=== PATIENT | female | born 1945 | race Caucasian/White ===

== ENCOUNTER 2017-06-03 10:50 | Outpatient (CLI) | payer MEDICARE, BC ==
[2017-06-03] MEDS ORDERED: Iopamidol 370 76% 100 ML VIAL ONE (13:50)
--- NOTE | 2017-06-03 14:42 | CT ---
CT CHEST WITH IV CONTRAST: Date: 06/03/17 HISTORY: Malignant neoplasm of the pyloric antrum, lung cancer, status post chemo and radiation therapy. FINDINGS: Comparison made with exams of 12/08/16 and 09/08/16. No mediastinal, hilar, or axillary mass or lymphadenopathy is seen. There is a small area of patchy consolidation in the right lower lobe in the region of the previously noted nodule likely due to pos t radiation change. No new pulmonary nodules are identified. No pleural or pericardial effusions are seen. There are degenerative changes in the spine. Upper abdominal tomograms demonstrate postop facundo nges, fatty liver, calcified splenic granulomas, and left renal cysts. IMPRESSION: Patchy consolidation in the right lower lobe is most likely due to post radiation change. No definit e pulmonary nodules are identified. POS: [facility]
== END 2017-06-03 10:51 | disposition home or self-care (01) ==
LOC: CT 10:50
PROVIDERS: ATTEND Internal Medicine Hematology & Oncology
DX: C16.3 Malignant neoplasm of pyloric antrum (principal); C78.02 Secondary malignant neoplasm of left lung
CPT/HCPCS: 71260

== ENCOUNTER 2017-09-13 10:19 | Outpatient (CLI) | payer MEDICARE, BC | END 2017-09-13 10:20 | disposition home or self-care (01) | LOC: BICRAD 10:19 | PROVIDERS: ATTEND Internal Medicine Hematology & Oncology | DX: C78.02 Secondary malignant neoplasm of left lung (principal) | CPT/HCPCS: 71046 ==

== ENCOUNTER 2017-12-07 09:07 | Outpatient (CLI) | payer MEDICARE, BC ==
[2017-12-07] MEDS ORDERED: ISOVUE-370 76%-LOCM 1 ML ONE (15:02)
== END 2017-12-07 09:08 | disposition home or self-care (01) ==
LOC: BICCT 09:07
PROVIDERS: ATTEND Internal Medicine Hematology & Oncology
DX: C78.02 Secondary malignant neoplasm of left lung (principal)
CPT/HCPCS: 71260

== ENCOUNTER 2018-01-14 06:17 | Inpatient (IN) | payer MEDICARE, BC ==
[2018-01-14 06:42] LABS: Bilirubin Negative (Negative); Blood, Urine Negative (Negative); Clarity CLEAR (Clear); Glucose, Urine (Dipstick) Negative (Negative); Leukocyte Trace (Negative); Nitrite Negative (Negative); Protein, Urine (Dipstick) Negative (Neg-Trace); Specific Gravity, Urine 1.012 (1.002-1.036); Urobilinogen 0.2 mg/dL (0.2-1.0)
[2018-01-14 06:44] LABS: Bacteria/HPF None Seen HPF (None Seen); Hyaline Casts/LPF 0-3 HYALINE CAST LPF (0-3 Hyaline); Pathc Cast-AUWi Flag 0.14 (0-2.49); RBC/HPF 0-3 HPF (0-3); Squamous Epithelial 0-3 HPF (0-3)
[2018-01-14 06:49] LABS: #Basophils 0.1 thou/uL (0.0-0.2); #Eosinphils 0.1 thou/uL (0.0-0.7); #Monocytes 0.4 thou/uL (0.11-0.59); #Neutrophils 4.6 thou/uL (1.40-6.50); %Eosinophils 1.4 % (0.0-10.0); %Lymphocytes 15.6 % (21.0-51.0); %Monocytes 6.4 % (0.0-10.0); %Neutrophils 74.6 % (42.0-75.0); Hemoglobin 11.9 g/dL (12.0-16.0); Mean Corpuscular HGB CONC 32.1 g/dL (32.0-36.0); Mean Corpuscular Hemoglobin 31.2 pg (27.0-31.0); Mean Corpuscular Volume 97.4 fl (81.0-99.0); Mean Platelet Volume 6.7 fL (7.4-10.4); Platelet Count 197 thou/uL (130-400); RBC Distribution Width 12.8 % (11.5-14.5); Red Blood Cell (RBC) Count 3.79 mill/uL (4.20-5.40); White Blood Cell (WBC) Count 6.2 thou/uL (4.8-10.8)
[2018-01-14 07:03] LABS: ALT (SGPT) 34 U/L (8-55); AST (SGOT) 58 U/L (5-34); Albumin 3.4 g/dL (3.4-4.8); Alkaline Phosphatase 147 U/L (40-150); Anion Gap 10 mmol/L (10-20); BUN (Urea Nitrogen) 17 mg/dL (9.8-20.1); Bilirubin, Total 0.2 mg/dL (0.2-1.2); Calc. Creatinine Clearance 0 mL/min (70-130); Calcium 8.7 mg/dL (7.8-10.44); Carbon Dioxide 21 mmol/L (23-31); Estimated GFR-MDRD 61; Globulin 2.6 g/dL (2.4-3.5); Glucose 107 mg/dL (83-110); Potassium 3.9 mmol/L (3.5-5.1); Sodium 143 mmol/L (136-145)
[2018-01-14 07:07] LABS: CKMB 1.2 ng/mL (0-6.6); Troponin I 0.014 ng/mL (< 0.028)
[2018-01-14 07:17] LABS: Chloride 116 mmol/L (98-107)
--- NOTE | 2018-01-14 07:21 | RAD ---
UPRIGHT PORTABLE CHEST 1 VIEW: Date: 01/14/18 HISTORY: 72-year-old female with history of chest pain and facial pain radiating to back. FINDINGS: Minimal rotation to the left. Monitor leads overlie the chest. Right subclavian catheter and injectio n port. Minimal linear and parenchymal changes in the right parahilar region, most likely residual sc ar, stable from prior study. No confluent pneumonia, overt edema, or pleural effusion. IMPRESSION: No acute intrathoracic disease. POS: [facility]
[2018-01-14 10:17] LABS: Troponin I 0.172 ng/mL (< 0.028)
[2018-01-14] MEDS ORDERED: Loratadine 10 MG TAB PO PRN (12:22)
[2018-01-14] MEDS ORDERED: Loperamide HCl 2 MG CAP PO PRN (12:22)
[2018-01-14] MEDS ORDERED: Nitroglycerin 0.4 MG TAB (25 Tab Bottle) SL PRN (12:22)
[2018-01-14] MEDS ORDERED: Senokot 8.6 MG TAB PO PRN (12:22)
[2018-01-14] MEDS ORDERED: Zolpidem Tartrate 5 MG TAB PO PRN (12:22)
[2018-01-14] MEDS ORDERED: Chloraseptic Spray 180 ml Bottle PO PRN (12:22)
[2018-01-14] MEDS ORDERED: hydrALAZINE 20 MG/ML VIAL SLOW IVP PRN (12:22)
[2018-01-14] MEDS ORDERED: Artificial Tears 18 DROP/0.9 ML EA EYE PRN (12:22)
[2018-01-14] MEDS ORDERED: Sodium Chloride 0.65% Nasal 44 ML BOT EA NARE PRN (12:22)
[2018-01-14] MEDS ORDERED: Diabetic Tussin 200 MG/10 ML UDCUP PO PRN (12:22)
[2018-01-14] MEDS ORDERED: Mag-Al 1200 mg/1200 mg/30 ML UDCUP PO PRN (12:22)
[2018-01-14] MEDS ORDERED: Lorazepam 1 MG TAB PO PRN (12:22)
[2018-01-14] MEDS ORDERED: Eucerin (Mineral Oil/Petrolatum,White) 30 gm Jar TOP PRN (12:22)
[2018-01-14] MEDS ORDERED: Ondansetron HCl/PF 4 MG/2 ML Vial IVP PRN (12:22)
[2018-01-14] MEDS ORDERED: Ondansetron ODT 4 MG TAB PO PRN (12:22)
[2018-01-14] MEDS ORDERED: Milk Of Magnesia 30 ML UDCUP PO PRN (12:22)
[2018-01-14 12:23] VITALS: BMI 30.4
--- NOTE | 2018-01-14 12:35 | HP ---
PRIMARY CARE PHYSICIAN: Dr. Cole Salazar at [facility] in [place], [place]. REASON FOR ADMISSION: Chest pain, elevated troponin, SVT. HISTORY OF PRESENT ILLNESS: A 72-year-old female who has previous history of atrial flutter/atrial f ibrillation, who has a history of ablation by Dr. De Luna in 01/2017. The patient was on Multaq, but th at medication was discontinued by her vendette. The patient was also on anticoagulation t herapy with Eliquis that was also discontinued. Last night around 4:30, she woke up and she went to restroom. At that time, the patient was experien cing pain on the right side of face. She was feeling lightheadedness. She felt her blood pressure h igh and migraine headache and that is why she took her blood pressure medication and a half pill of p ain medication, but that did not improve her symptoms. She checked her vitals, at that time she noti delgado that her pulse was in 180s. The patient called paramedics. When paramedics came to her home, at that time she was having SVT/1:1 atrial flutter. Paramedics advised her to take deep breath against pressure and immediately after that her atrial flutter/SVT converted to sinus rhythm, heart rate red uced to 108. Subsequently, the patient was brought to emergency room for evaluation. When she came to emergency room, she was in sinus rhythm. Her first set of cardiac enzymes were negative, but seco nd set of troponin was elevated. The patient was not having any chest pain though she was feeling li ghtheadedness. Her facial pain was resolved. She did not have any fever or chills. She denies taki ng excessive caffeinated product. She denies any fever or chills. She denies any UTI symptoms. She denies any constipation, diarrhea, melena or hematochezia. In the emergency room, the patient was hemodynamically stable, though slightly hypertensive. Initial ly, there was plan to discharge from ER, but as troponin was elevated and that is why ER physician de cided to keep this patient in the hospital for observation. The patient described chest pain, subste rnal, radiated to her back when she had episode of SVT, lasted for a few minutes and subsided when he r initial SVT converted into sinus rhythm with vagal maneuvers. Since then, she does not have any fu rther chest pain. She denies any syncope. She was not feeling any palpitations. She denies any ort hopnea, PND or leg swelling. She denies any relation of chest pain with food, respiration, or activi ty. REVIEW OF SYSTEMS: Please see my HPI for pertinent positive and negative. All other review of syste ms reviewed and negative except as mentioned in the HPI: Constitutional: Weight loss or gain, ability to conduct usual activities. Skin: Rash, itching. Eyes: Double vision, pain. ENT/Mouth: Nose bleeding, neck stiffness, pain, tenderness. Cardiovascular: Palpitations, dyspnea on exertion, orthopnea. Respiratory: Shortness of breath, wheezing, cough, hemoptysis, fever or night sweats. Gastrointestinal: Poor appetite, abdominal pain, heartburn, nausea, vomiting, constipation, or diarrhea. Genitourinary: Urgency, frequency, dysuria, nocturia. Musculoskeletal: Pain, swelling. Neurologic/Psychiatric: Anxiety, depression. Allergy/Immunologic: Skin rash, bleeding tendency. PAST MEDICAL HISTORY: Paroxysmal atrial fibrillation/flutter, hypertension, dyslipidemia, asthma, hi story of stomach cancer, migraine headache. PAST SURGICAL HISTORY: Neck surgery, laparoscopic cholecystectomy, colonoscopy, stomach surgery, ome ntectomy, history of Port-A-Cath placement to right subclavian, history of lumpectomy of right breast , ablation for atrial flutter. PAST PSYCHIATRIC HISTORY: Anxiety and depression. SOCIAL HISTORY: The patient is . Her is present at bedside in the emergency room. N o history of tobacco, alcohol or illicit drug abuse. She is a former smoker. She quit smoking sever al years ago. FAMILY HISTORY: Positive for cerebrovascular accident, diabetes, kidney failure in her brother and s ister. ALLERGIES: ASPIRIN. CURRENT HOME MEDICATIONS: The patient is no longer on Multaq or anticoagulation therapy with Eliquis . Currently, the patient is on Corgard 40 mg daily, [place] 5 one tablet at bedtime, Soma 250 mg at be dtime, Ativan 0.5 mg as needed basis. EMERGENCY ROOM COURSE: Reviewed. PHYSICAL EXAMINATION: VITAL SIGNS: On arrival, blood pressure 177/78, pulse 88, respiratory rate 18, temperature 98.2, sat uration 98% on room air, weight 77.1 kilograms. GENERAL: The patient is currently alert, oriented, no acute distress. HEAD: Normocephalic, atraumatic. EYES: Pupils round, reactive to light. Extraocular muscle intact. ENT: Oropharynx within normal limits. Moist mucous membranes. No oral lesion, no pharyngeal erythe ma, no exudate. NECK: Supple, no JVD, no thyromegaly, no carotid bruit, no jugular venous distention. LUNGS: Clear to auscultation without any rhonchi or rales. CARDIAC: S1, S2 regular. No murmur, no gallop, no rub. ABDOMEN: Soft, bowel sounds present, nontender, nondistended. No organomegaly, no mass, no suprapub ic tenderness. BACK: Unremarkable, no CVA tenderness. EXTREMITIES: Upper extremity: Passive movement of all joints are normal. Lower extremity: Trace l ower extremity edema. Good distal pulsation. SKIN: No skin rash. HEMATOLOGICAL: No lymphadenopathy. PSYCHIATRIC: Normal affect. NEUROLOGIC: Nonfocal examination. SIGNIFICANT LABORATORY DATA: 1. Monitor strip which was done by paramedics showing SVT/atrial flutter 1:1. Current EKG showing n ormal sinus rhythm, minimal voltage criteria for LVH. Repeat EKG showing sinus bradycardia and incom plete right bundle branch block pattern. 2. CBC: WBC 6.2, hemoglobin 11.9, platelet 197. BMP: Sodium 143, potassium 3.9, chloride 116, car bon dioxide 21, anion gap 10, BUN 17, creatinine 0.90, glucose 107, calcium 8.7. LFT: AST 58, ALT 3 4, alkaline phosphatase 147, albumin 3.4, CK-MB 1.2, troponin I 0.014, repeat troponin 0.172. Urinal ysis: Leukocyte esterase trace. 3. Chest x-ray based on my review, no acute cardiopulmonary process. ASSESSMENT AND PLAN: 1. Transient supraventricular tachycardia /atrial flutter 1:1 with rapid ventricular response conver smitha to sinus rhythm with vagal maneuver. This patient has a history of previous paroxysmal atrial fi brillation/flutter, required ablation. She is not on any specific medication for rate control. The patient has second set of elevated troponins, likely due to demand ischemia. This patient will requi re Cardiology evaluation and will defer to start any AV delbert maru agent to Cardiology. We will m onitor on telemetry floor. She may need vendette follow up as an outpatient basis which s he has end of this month. 2. Chest pain, likely related with supraventricular tachycardia/atrial flutter. The patient has cur rently the sinus rhythm without any acute ischemic changes. Her troponin is elevated because of aimee nd ischemia from supraventricular tachycardia. At this point, we will do serial cardiac enzymes x3. We will continue Plavix 75 mg p.o. daily, nitropatch q.8 hourly. We will do serial cardiac enzymes and check lipid profile tomorrow morning. Cardiology already consulted. Further investigation will defer to Cardiology. 3. Elevated troponin, likely due to demand ischemia. We will obtain echocardiography during this ad mission. Most likely, current troponin elevation is related with demand ischemia from supraventricul ar tachycardia, but we will do serial cardiac enzymes and monitor on telemetry floor and Cardiology i s already consulted. 4. Asthma, mild intermittent. We will continue Ventolin nebulization p.r.n. basis. 5. Anxiety disorder. We will continue lorazepam on p.r.n. basis. 6. Chronic pain disorder. We will continue her Ashton and Soma as per home dosage. 7. Deep venous thrombosis prophylaxis not needed because we are expecting discharge in 24 hours. 8. Gastrointestinal prophylaxis, Pepcid 20 mg p.o. b.i.d. 9. Code status: The patient is FULL CODE. The patient's is surrogate decision maker. Disp osition plan based on clinical course.
[2018-01-14] MEDS: Acetaminophen 325 MG TAB PO PRN (13:31)
[2018-01-14] MEDS: Nitroglycerin 2% Ointment 1 INCH/1 GM Packet TOP SCH ×2 (14:47→21:41)
[2018-01-14 16:39] LABS: Troponin I 0.355 ng/mL (< 0.028)
--- NOTE | 2018-01-14 18:13 | CON ---
DATE OF SERVICE: 01/14/2018 REASON FOR CONSULTATION: Chest pain, SVT, non-STEMI. HISTORY OF PRESENT ILLNESS: Mrs. Durbin is a pleasant 72-year-old white female who comes to the hospit ca for chest pain. She was at home, she felt sudden onset of palpitations and chest tightness in the mid sternal area, radiated to the back in the mid scapular region. She called 911. When they came in, she was found to be in SVT, heart rate in the 180s. She was asked to bear down and she did and i mmediately broke the SVT and she felt much better. She was brought in for further evaluation. Durin g her hospital stay, she has remained pretty much asymptomatic in sinus rhythm. However, her troponi ns have increased up to 0.35 now, so Cardiology is being consulted for further care. She has a histo ry of SVT. She had atrial flutter ablation by Dr. De Luna January of last year and she saw Dr. Delaney at that time. She is wanting to switch coil winder. PAST MEDICAL HISTORY: 1. Paroxysmal atrial fibrillation/flutter. 2. Hypertension. 3. Hyperlipidemia. 4. Bronchial asthma. 5. Stomach cancer in the past. 6. Migraine headaches. PAST SURGICAL HISTORY: 1. Neck surgery. 2. Laparoscopic cholecystectomy. 3. Colonoscopy. 4. Stomach surgery. 5. Omentectomy. 6. Port-A-Cath placement of the right subclavian. 7. Lumpectomy, right breast. 8. Aflutter ablation. SOCIAL HISTORY: No alcohol, tobacco or drugs. Former smoker, but she quit several years ago. FAMILY HISTORY: Noncontributory. OUTPATIENT MEDICATIONS: 1. Nadolol 40 mg a day. 2. Gabapentin. 3. Flonase. 4. Soma. 5. Albuterol inhaler. 6. Lorazepam. 7. Hydrocodone with acetaminophen. ALLERGIES: ASPIRIN. REVIEW OF SYSTEMS: A 12 point review of systems was done and is all negative unless stated in histor y of present illness. PHYSICAL EXAMINATION: VITAL SIGNS: Temperature 98.1, pulse 54, respiration rate 12, satting 98% on room air, blood pressur e 150/65. GENERAL: Awake, alert, oriented x3, in no distress. HEENT: Normocephalic, atraumatic. NECK: Supple. LUNGS: Clear. CARDIOVASCULAR: S1, S2, no S3, S4, no murmurs or rubs. ABDOMEN: Soft, positive bowel sounds. EXTREMITIES: No edema. SKIN: Warm and dry. LABORATORY WORK: Reviewed. CBC was unremarkable. Chemistries were unremarkable except for a tropon in was 0.01, then 0.17, 0.29, 0.35. UA was unremarkable. EKGs were reviewed, what appears to be in SVT, heart rate in the 180s. There is a tracing from EMS i n the chart. ASSESSMENT: 1. Non-ST elevation myocardial infarction. 2. Supraventricular tachycardia. 3. History of atrial flutter, status post ablation. PLAN: Her troponins increased to positive range. She had chest tightness with her episode of SVT. We will have to further risk stratify with a heart catheterization. I have spoken with her at length about the risks and benefits of the procedure, risks including, but not limited to stroke, DE, , bleed ing and need for blood transfusion, limb loss, organ loss, contrast reactions like renal dysfunction and allergic reaction. She verbalized understanding of this and agrees to proceed. Drug-eluting garcia nts if needed. If her heart catheterization is negative, we will consult Electrophysiology to see if there is anythi ng that we need to be doing about this SVT. She may need an ablation as well. Thank you for letting us participate in the care of your patient. We will follow.
[2018-01-14] MEDS: Gabapentin 300 MG CAP PO SCH (21:41)
[2018-01-14] MEDS: Famotidine 20 MG TAB PO SCH (21:44)
[2018-01-14] MEDS: HYDROcodone/Acetaminophen 5/325 mg Tablet PO PRN (21:44)
[2018-01-14] MEDS: Enoxaparin Sodium 80 MG/0.8 ML SYRINGE SC SCH (21:46)
[2018-01-15 05:50] LABS: Cardiac Risk 2.4 (Less than 4.5)
[2018-01-15] MEDS: Nitroglycerin 2% Ointment 1 INCH/1 GM Packet TOP SCH ×2 (05:57→14:09)
[2018-01-15] MEDS: Famotidine 20 MG TAB PO SCH ×2 (08:00→19:31)
[2018-01-15] MEDS: Gabapentin 300 MG CAP PO SCH ×3 (08:00→19:31)
[2018-01-15] MEDS: Enoxaparin Sodium 80 MG/0.8 ML SYRINGE SC SCH ×2 (08:01→19:31)
[2018-01-15] MEDS: Nadolol 40 MG TAB PO SCH (08:01)
[2018-01-15] MEDS ORDERED: Clopidogrel Bisulfate 75 MG TAB PO SCH (09:00)
[2018-01-15] MEDS ORDERED: Enoxaparin Sodium 40 MG/0.4 ML SYRINGE SC SCH (09:00)
--- NOTE | 2018-01-15 11:08 | PDOC.PN ---
- Subjective Encounter Start Date: 01/15/18 Encounter Start Time: 10:25 Subjective: no chest pain or sob -: feels better - Objective MAR Reviewed: Yes Vital Signs & Weight: Vital Signs (12 hours) Temp Pulse Resp BP Pulse Ox 01/15/18 09:53 65 156/70 H 01/15/18 08:00 98.1 F 54 L 16 97 01/15/18 07:34 98.1 F 54 L 16 181/75 H 97 01/15/18 04:00 98.1 F 69 16 172/74 H 97 01/15/18 00:00 61 18 147/67 H 98 Result Diagrams: 01/14/18 06:44 01/14/18 06:44 Additional Labs: Accuchecks 01/15/18 01/14/18 05:26 21:10 POC Glucose 109 109 Phys Exam - Physical Examination HEENT: PERRLA, moist MMs Neck: no JVD, supple Respiratory: no wheezing, no rales Cardiovascular: RRR, no significant murmur Gastrointestinal: soft, non-tender, positive bowel sounds Musculoskeletal: no edema, pulses present Neurological: non-focal, moves all 4 limbs Psychiatric: normal affect, A&O x 3 Dx/Plan (1) NSTEMI (non-ST elevated myocardial infarction) Code(s): I21.4 - NON-ST ELEVATION (NSTEMI) MYOCARDIAL INFARCTION Status: Acute (2) SVT (supraventricular tachycardia) Code(s): I47.1 - SUPRAVENTRICULAR TACHYCARDIA Status: Acute (3) Dyslipidemia Code(s): E78.5 - HYPERLIPIDEMIA, UNSPECIFIED Status: Chronic (4) Paroxysmal atrial fibrillation Code(s): I48.0 - PAROXYSMAL ATRIAL FIBRILLATION Status: Chronic (5) H/o gastric adenocarcinoma Status: Chronic (6) Hypertension Code(s): I10 - ESSENTIAL (PRIMARY) HYPERTENSION Status: Chronic Qualifiers: Hypertension type: essential hypertension Qualified Code(s): I10 - Essential (primary) hypertension - Plan for cath in am, likely ep eval -: is on lovenox 80mg sc q12h, plavix (has asp allergy) -: continue nadolol, nitropaste q8h -: trop indet upto 0.3, ldl is 49 -: to amb as tolerated * . pt on soma, gabapentin, ativan, ambien, norco prn, watch for resp depression. Review of Systems - Medications/Allergies Allergies/Adverse Reactions: Allergies Allergy/AdvReac Type Severity Reaction Status Date / Time aspirin Allergy Severe Swollen Verified 01/23/17 23:58 Lips Medications: Current Medications Acetaminophen (Tylenol) 650 mg PO Q4H PRN PRN Reason: Headache/Fever or Pain Last Admin: 01/14/18 13:31 Dose: 650 mg Hydrocodone Bitart/Acetaminophen ([address] 5/325) 1 tab PO Q4H PRN PRN Reason: Moderate Pain (4-6) Last Admin: 01/14/18 21:44 Dose: 1 tab Al Hydroxide/Mg Hydroxide (Maalox) 30 ml PO Q6H PRN PRN Reason: Heartburn or Indigestion Artificial Tears (Tears Naturale) 0 drop EA EYE PRN PRN PRN Reason: Dry Eyes Carisoprodol (Soma) 350 mg PO HS [facility] Last Admin: 01/14/18 21:44 Dose: 350 mg Clopidogrel Bisulfate (Plavix) 75 mg PO DAILY [facility] Enoxaparin Sodium (Lovenox) 80 mg SC 0900,2100 [facility] Last Admin: 01/15/18 08:01 Dose: 80 mg Famotidine (Pepcid) 20 mg PO BID [facility] Last Admin: 01/15/18 08:00 Dose: 20 mg Gabapentin (Neurontin) 300 mg PO TID [facility] Last Admin: 01/15/18 08:00 Dose: 300 mg Guaifenesin (Robitussin Sf) 200 mg PO Q4H PRN PRN Reason: Cough Hydralazine HCl (Apresoline) 10 mg SLOW IVP Q4H PRN PRN Reason: Systolic BP > 180 Loperamide HCl (Imodium) 2 mg PO PRN PRN PRN Reason: Diarrhea/Loose Stools Loratadine (Claritin) 10 mg PO DAILYPRN PRN PRN Reason: Sinus Symptoms Lorazepam (Ativan) 0.5 mg PO Q4H PRN PRN Reason: Anxiety/Agitation Magnesium Hydroxide (Milk Of Magnesium) 30 ml PO DAILYPRN PRN PRN Reason: Constipation Mineral Oil/White Petrolatum (Eucerin Cream) 0 gm TOP BIDPRN PRN PRN Reason: Dry Skin Nadolol (Corgard) 40 mg PO DAILY [facility] Last Admin: 01/15/18 08:01 Dose: 40 mg Nitroglycerin (Nitrostat) 0.4 mg SL Q5MIN PRN PRN Reason: Chest Pain Nitroglycerin (Nitro-Bid 2% Ointment) 0.5 inch TOP Q8HR [facility] Last Admin: 01/15/18 05:57 Dose: 0.5 inch Ondansetron HCl (Zofran Odt) 4 mg PO Q6H PRN PRN Reason: Nausea/Vomiting Ondansetron HCl (Zofran) 4 mg IVP Q6H PRN PRN Reason: Nausea/Vomiting Phenol (Chloraseptic [place] 180 Ml Bot) 0 ml PO PRN PRN PRN Reason: Sore Throat Senna (Senokot) 2 tab PO HSPRN PRN PRN Reason: Constipation Sodium Chloride ([place] Nasal [place] 0.65%) 0 ml EA NARE QIDPRN PRN PRN Reason: Nasal Congestion Zolpidem Tartrate (Ambien) 5 mg PO HSPRN PRN PRN Reason: Insomnia
--- NOTE | 2018-01-15 15:58 | PDOC.CTH ---
Cardiology Progress Note - Subjective She is doing well. No chest pain. - Objective Vital Signs Temp Pulse Resp BP Pulse Ox 01/15/18 15:34 98.2 F 65 14 154/69 H 97 01/15/18 11:13 98 F 63 14 150/72 H 97 01/15/18 09:53 65 156/70 H 01/15/18 08:00 98.1 F 54 L 16 97 01/15/18 07:34 98.1 F 54 L 16 181/75 H 97 01/15/18 04:00 98.1 F 69 16 172/74 H 97 - Physical Examination General/Neuro: alert & oriented x3, NAD Neck: no JVD present Lungs: CTA, unlabored respirations Heart: RRR Abdomen: NT/ND Extremities: other: (no edema) - Telemetry Telemetry Rhythm: NSR - Labs Result Diagrams: 01/14/18 06:44 01/14/18 06:44 Troponin/CKMB CK-MB (CK-2) 1.2 ng/mL (0-6.6) 01/14/18 06:44 Troponin I 0.355 ng/mL (< 0.028) H* 01/14/18 15:43 - Assessment/Plan 1. NSTEMI PLAN: - [facility] tomorrow.
[2018-01-15] MEDS ORDERED: Communication Order-Pharmacy FS SCH (18:45)
[2018-01-15] MEDS: HYDROcodone/Acetaminophen 5/325 mg Tablet PO PRN (19:35)
[2018-01-16] MEDS: Nitroglycerin 2% Ointment 1 INCH/1 GM Packet TOP SCH ×3 (01:08→15:05)
[2018-01-16] MEDS: Famotidine 20 MG TAB PO SCH (04:45)
[2018-01-16] MEDS: Nadolol 40 MG TAB PO SCH (04:45)
[2018-01-16] MEDS: Gabapentin 300 MG CAP PO SCH ×3 (04:46→15:05)
[2018-01-16] MEDS ORDERED: Sodium Chloride 0.9% 1,000 ML IV SCH ×2 (06:00→12:15)
[2018-01-16] MEDS ORDERED: Iopamidol 370 76% 100 ML VIAL ONE (07:26)
[2018-01-16] MEDS ORDERED: Clopidogrel Bisulfate 75 MG TAB PO SCH (09:00)
[2018-01-16] MEDS ORDERED: Lidocaine 1% (PF) 30 ML VIAL ONE (09:55)
[2018-01-16] MEDS ORDERED: Fentanyl 100 MCG/2 ML VIAL ONE (10:33)
[2018-01-16] MEDS ORDERED: Midazolam HCl 2 mg/2 ml Vial ONE (10:33)
[2018-01-16] MEDS ORDERED: hydrALAZINE 20 MG/ML VIAL ONE (10:40)
[2018-01-16] MEDS: Acetaminophen 325 MG TAB PO PRN (11:17)
[2018-01-16 11:24] VITALS: TEMP 98.2
--- NOTE | 2018-01-16 11:27 | PDOC.PN ---
- Subjective Encounter Start Date: 01/16/18 Encounter Start Time: 08:50 Subjective: no chest pain or palp -: is feeling better, npo for cath today -: at bedside - Objective MAR Reviewed: Yes Vital Signs & Weight: Vital Signs (12 hours) Temp Pulse Resp BP Pulse Ox 01/16/18 11:23 98.2 F 78 16 125/58 L 99 01/16/18 07:40 97.8 F 63 14 140/65 97 01/16/18 07:28 155/70 H 01/16/18 05:39 98 01/16/18 05:00 98 F 88 18 170/78 H 95 01/16/18 04:51 59 L 01/16/18 04:00 98 F 88 18 180/90 H 98 Weight Weight 167 lb I&O: 01/15/18 01/16/18 01/17/18 06:59 06:59 06:59 Intake Total 960 Output Total 860 Balance 100 Result Diagrams: 01/14/18 06:44 01/14/18 06:44 Additional Labs: Accuchecks 01/15/18 10:57 POC Glucose 123 H Phys Exam - Physical Examination HEENT: PERRLA, moist MMs Neck: no JVD, supple Respiratory: no wheezing, no rales Cardiovascular: RRR, no significant murmur Gastrointestinal: soft, non-tender, positive bowel sounds Musculoskeletal: no edema, pulses present Neurological: non-focal, moves all 4 limbs Psychiatric: normal affect, A&O x 3 Dx/Plan (1) NSTEMI (non-ST elevated myocardial infarction) Code(s): I21.4 - NON-ST ELEVATION (NSTEMI) MYOCARDIAL INFARCTION Status: Acute (2) SVT (supraventricular tachycardia) Code(s): I47.1 - SUPRAVENTRICULAR TACHYCARDIA Status: Acute (3) Dyslipidemia Code(s): E78.5 - HYPERLIPIDEMIA, UNSPECIFIED Status: Chronic (4) Paroxysmal atrial fibrillation Code(s): I48.0 - PAROXYSMAL ATRIAL FIBRILLATION Status: Chronic (5) H/o gastric adenocarcinoma Status: Chronic (6) Hypertension Code(s): I10 - ESSENTIAL (PRIMARY) HYPERTENSION Status: Chronic Qualifiers: Hypertension type: essential hypertension Qualified Code(s): I10 - Essential (primary) hypertension - Plan for cath today -: hemostable -: on nadolol, nitro, lovenox held for cath -: EP consult per cardio advice -: will f/u * . Review of Systems - Medications/Allergies Allergies/Adverse Reactions: Allergies Allergy/AdvReac Type Severity Reaction Status Date / Time aspirin Allergy Severe Swollen Verified 01/23/17 23:58 Lips Medications: Current Medications Acetaminophen (Tylenol) 650 mg PO Q4H PRN PRN Reason: Headache/Fever or Pain Last Admin: 01/16/18 11:17 Dose: 650 mg Hydrocodone Bitart/Acetaminophen ([place] 5/325) 1 tab PO Q4H PRN PRN Reason: Moderate Pain (4-6) Last Admin: 01/15/18 19:35 Dose: 1 tab Al Hydroxide/Mg Hydroxide (Maalox) 30 ml PO Q6H PRN PRN Reason: Heartburn or Indigestion Last Admin: 01/15/18 19:31 Dose: 30 ml Artificial Tears (Tears Naturale) 0 drop EA EYE PRN PRN PRN Reason: Dry Eyes Carisoprodol (Soma) 350 mg PO [facility] Last Admin: 01/15/18 19:32 Dose: 350 mg Clopidogrel Bisulfate (Plavix) 75 mg PO DAILY [facility] Last Admin: 01/16/18 04:46 Dose: 75 mg Famotidine (Pepcid) 20 mg PO BID [facility] Last Admin: 01/16/18 04:45 Dose: 20 mg Gabapentin (Neurontin) 300 mg PO TID [facility] Last Admin: 01/16/18 08:09 Dose: Not Given Guaifenesin (Robitussin Sf) 200 mg PO Q4H PRN PRN Reason: Cough Hydralazine HCl (Apresoline) 10 mg SLOW IVP Q4H PRN PRN Reason: Systolic BP > 180 Last Admin: 01/16/18 04:51 Dose: 10 mg Sodium Chloride (Normal Saline 0.9%) 1,000 mls @ 100 mls/hr IV .Q10H [facility] Last Admin: 01/16/18 04:52 Dose: 1,000 mls Loperamide HCl (Imodium) 2 mg PO PRN PRN PRN Reason: Diarrhea/Loose Stools Loratadine (Claritin) 10 mg PO DAILYPRN PRN PRN Reason: Sinus Symptoms Lorazepam (Ativan) 0.5 mg PO Q4H PRN PRN Reason: Anxiety/Agitation Last Admin: 01/16/18 05:41 Dose: 0.5 mg Magnesium Hydroxide (Milk Of Magnesium) 30 ml PO DAILYPRN PRN PRN Reason: Constipation Mineral Oil/White Petrolatum (Eucerin Cream) 0 gm TOP BIDPRN PRN PRN Reason: Dry Skin Miscellaneous Information (Communication Order-Pharmacy) 0 each FS ONE [facility] Stop: 01/16/18 18:46 Nadolol (Corgard) 40 mg PO DAILY [facility] Last Admin: 01/16/18 04:45 Dose: 40 mg Nitroglycerin (Nitrostat) 0.4 mg SL Q5MIN PRN PRN Reason: Chest Pain Nitroglycerin (Nitro-Bid 2% Ointment) 0.5 inch TOP Q8HR [facility] Last Admin: 01/16/18 04:46 Dose: 0.5 inch Ondansetron HCl (Zofran Odt) 4 mg PO Q6H PRN PRN Reason: Nausea/Vomiting Ondansetron HCl (Zofran) 4 mg IVP Q6H PRN PRN Reason: Nausea/Vomiting Phenol (Chloraseptic [place] 180 Ml Bot) 0 ml PO PRN PRN PRN Reason: Sore Throat Senna (Senokot) 2 tab PO HSPRN PRN PRN Reason: Constipation Sodium Chloride ([place] Nasal [place] 0.65%) 0 ml EA NARE QIDPRN PRN PRN Reason: Nasal Congestion Sodium Chloride (Flush - Normal Saline) 10 ml IVF Q12HR [facility] Last Admin: 01/16/18 04:51 Dose: 10 ml Sodium Chloride (Flush - Normal Saline) 10 ml IVF PRN PRN PRN Reason: Saline Flush Zolpidem Tartrate (Ambien) 5 mg PO HSPRN PRN PRN Reason: Insomnia
[2018-01-16] MEDS ORDERED: traMADol HCl 50 MG TAB PO PRN (12:02)
[2018-01-16] MEDS ORDERED: Acetaminophen/Codeine 30-300mg Tablet PO PRN (12:02)
--- NOTE | 2018-01-16 15:01 | CON-2 ---
DATE OF CONSULTATION: 01/16/2018 DATE OF ADMISSION: 01/14/2018 REQUESTING PHYSICIAN: Aroldo Holt MD. REASON FOR CONSULTATION: SVT. LEONIDAS Baig, dictating a scribe for Braydon Alejandra MD HISTORY OF PRESENT ILLNESS: Ms. Durbin is a very pleasant 72-year-old female known to our practice with a history of atrial arrhythmias. Unfortunately, she called 911 and was brought to the hospital for chest pain radiating to the back as well as tightness in her jaw and neck. Prior to presenting to the emergency room, she was at home, began to experience the pain as well as palpitations and heart racing. EMS arrived and found her to be in SVT with a heart rate at approximately 180 beats per minute. She was asked to bear down which effectively broke the SVT bringing her rate down to the 100-110 beat per minute range. She is brought in for further evaluation since undergone left heart catheterization for slightly elevated troponin of 0.35. Her left heart catheterization was essentially clear and she did not receive any PCI or stent. Currently, she is resting in bed. She denies any heart racing, palpitations, chest pain, pressure, syncope, near syncope, stroke or stroke like symptoms. She does continue to endorse infrequent episodes of rapid rhythm, mostly occurring in the morning that is symptomatic, but as mentioned, infrequent. She has a history of typical atrial flutter and underwent ablation with Dr. De Luna in 01/2017. She does have a history of atrial fibrillation as well and at the time of the last ablation, the recommendation was to consider pulmonary venous isolation if symptomatic recurrences were seen. PAST MEDICAL HISTORY: 1. Paroxysmal atrial fibrillation. 2. Typical atrial flutter, status post CTI ablation on 02/01/2017. 3. Mild sinus node dysfunction by EP study on 02/11/2017. 4. Preserved LVEF. 5. Hypertension. 6. Hyperlipidemia. 7. Bronchial asthma. 8. Migraines. 9. Stomach cancer. SOCIAL HISTORY: Negative for alcohol, drugs, tobacco. History of smoking, remote. FAMILY HISTORY: Negative for sudden cardiac , early onset of coronary artery disease. ALLERGIES: ASPIRIN. HOME MEDICATIONS: Nadolol 40 mg daily, Neurontin 300 mg p.o. t.i.d., fluticasone daily, Soma 350 mg p.o. at bedtime, albuterol q.6 hours as needed, Ativan 0.5 mg p.o. t.i.d., hydrocodone 10/325 one to two tabs p.o. q.6 hours as needed. PHYSICAL EXAMINATION: VITAL SIGNS: Most recent vitals 98.2 degrees Fahrenheit, pulse 78, blood pressure 125/58, respirations 16, oxygen saturation is 99% on room air. GENERAL: This is a well-appearing woman, in no apparent distress. NECK: Supple, without jugular venous distention. She is normocephalic, atraumatic. Her speech is clear. Affect is appropriate. LUNGS: Clear to auscultation bilaterally without wheezes, crackles or rhonchi. Respirations are even and unlabored with good bilateral excursion. HEART: Her heart rate is currently irregularly irregular with a crisp S1, S2. PMI is nondisplaced. ABDOMEN: Soft and nontender with positive bowel sounds noted throughout. Hepatojugular reflux is negative. NEUROLOGIC: Exam is grossly intact. Cranial nerves II-XII and exam is nonfocal. EXTREMITIES: Warm and dry to touch without clubbing, cyanosis, or edema. DATABASE: Review of telemetry tracings and EKGs reveal largely sinus rhythm. Tracing from EMS reveals a fairly regular SVT at approximately 180 beats per minute. Either SVT or possibly atrial tachycardia. QRS is 100 milliseconds, MT intervals 150 milliseconds. Currently, rates are well controlled in the 60 beat per minute range. LABORATORY DATA: Hemoglobin 11.9, otherwise Hematology unremarkable. Chemistry on 01/14, unremarkable. Creatinine 0.9. Electrolytes within normal limits. Serial troponins were conducted and did peak at 0.35 as mentioned above. IMPRESSION: 1. Supraventricular tachycardia vs. atrial tachycardia 2. History of atrial flutter and atrial fibrillation, prior CTI ablation for her flutter. 3. Non-ST elevation myocardial infarction with a left heart catheterization performed today with no intervention. RECOMMENDATIONS: At this point, it is difficult to determine whether this is a general SVT versus an atrial tachycardia by EKG strips alone. It was responsive to vagal maneuvers which suggests SVT. She does have a history of symptomatic atrial arrhythmias and has previously undergone CTI ablation. Today , discussed treatment options including medical management EP study and possible ablation. I recommend she be scheduled for EP study with atrial fibrillation and SVT ablation as an outpatient to address both possible issues simultaneously. She has a followup in the near future at her clinic, but we will work to get her scheduled as an outpatient. In the meantime, we recommend continued AV delbert blocking agents as tolerated to prevent any symptomatic recurrences. She is already on nadolol, but may require some diltiazem as well versus optimized beta maru therapy. Thank you for allowing us to participate in the care of this patient. NELLIE
[2018-01-16 15:10] VITALS: BP 116/56
--- NOTE | 2018-01-17 01:41 | DIS ---
DATE OF ADMISSION: 01/17/2018 DATE OF DISCHARGE: 01/17/2018 DISCHARGE DISPOSITION: To home. PRIMARY DISCHARGE DIAGNOSES: Non-ST elevation myocardial infarction, likely demand ischemia due to s upraventricular tachycardia. SECONDARY DISCHARGE DIAGNOSES: History of paroxysmal atrial fibrillation with prior ablation, hypert ension, history of gastric adenocarcinoma in remission. PROCEDURES DONE DURING HOSPITALIZATION: Cardiac catheterization done today by Dr. Holt showed mild coronary artery disease with normal LV end diastolic pressure. Echo with 2D Doppler done showed an ejection fraction of 50%-55%. RV systolic pressure was elevated at 42 mmHg. H&H 11 and 36, platelet count 197, total cholesterol 102, LDL 49, triglycerides 53, HDL 42. Troponin I was indeterminate pe aking up to 0.3, CK-MB 1.2. DISCHARGE MEDICATIONS: Patient to continue all her home medications as before, Soma 350 mg p.o. at b edtime p.r.n., albuterol inhaler q.6 hourly p.r.n., gabapentin 300 mg p.o. 3 times daily, [place] p.r.n . for pain, Ativan 0.5 mg p.o. 3 times daily p.r.n. for anxiety, nadolol 40 mg p.o. daily. ALLERGIES: ASPIRIN. INPATIENT CONSULTS: Dr. Holt for cardiology and Dr. Adam De Luna for electrophysiology. BRIEF COURSE DURING HOSPITALIZATION: Patient initially got admitted on the 2nd of this month with co mplaints of dizziness and pain on the right side of her face. This woke her up around 4:30 in the mo rning and found her pulse to be in the 180s. EMS was summoned and patient was brought to emergency r oom. She has had indeterminate troponins on arrival. Patient has had Cardiology consultation with Deepthi Holt. She has had cardiac catheterization done today, which showed mild coronary artery disease with no flow limiting disease. Patient has outpatient appointment with Dr. Medina for electrophysio logy. They would like to follow up on her as an outpatient and have cleared her for discharge today. Patient is hemodynamically stable and will be shortly discharged home. Please see a [id number] d ocumentation on [facility] for the day of discharge.
== END 2018-01-16 17:47 | disposition home or self-care (01) | DRG 281 ==
LOC: ERS 06:17 → 2SW 12:09 → OBSVTOIN 17:29 → 2NO 19:12
PROVIDERS: ADMIT Internal Medicine; ATTEND Internal Medicine
PROC: 4A023N7 Measurement of Cardiac Sampling and Pressure, Left Heart, Percutaneous Approach (ICD-10-PCS; principal; 2018-01-16)
PROC: B2111ZZ Fluoroscopy of Multiple Coronary Arteries using Low Osmolar Contrast (ICD-10-PCS; 2018-01-16)
PROC: B2151ZZ Fluoroscopy of Left Heart using Low Osmolar Contrast (ICD-10-PCS; 2018-01-16)
DX: I21.A1 Myocardial infarction type 2 (principal); I47.1 Supraventricular tachycardia; J45.20 Mild intermittent asthma, uncomplicated; I10 Essential (primary) hypertension; I48.0 Paroxysmal atrial fibrillation; E78.5 Hyperlipidemia, unspecified; Z85.028 Personal history of other malignant neoplasm of stomach; F32.9 Major depressive disorder, single episode, unspecified; F41.9 Anxiety disorder, unspecified; Z88.6 Allergy status to analgesic agent; Z79.899 Other long term (current) drug therapy; Z79.1 Long term (current) use of non-steroidal anti-inflammatories (NSAID); Z79.891 Long term (current) use of opiate analgesic
CPT/HCPCS: 36415; 36416; 71045; 80053; 80061; 81003; 81015; 82553; 84484; 85025; 93005; 93306; 93458; 99152; A4216; C1769; J0360; J1644; J1650; J2001; J2250; J3010

== ENCOUNTER 2018-04-25 16:21 | Outpatient (CLI) | payer MEDICARE, BC | END 2018-04-25 16:22 | disposition home or self-care (01) | LOC: RAD 16:21 → BICRAD 16:22 | PROVIDERS: ATTEND Internal Medicine Hematology & Oncology | DX: C78.02 Secondary malignant neoplasm of left lung (principal); C16.3 Malignant neoplasm of pyloric antrum; R91.8 Other nonspecific abnormal finding of lung field; L98.9 Disorder of the skin and subcutaneous tissue, unspecified | CPT/HCPCS: 71046 ==

== ENCOUNTER 2018-06-19 09:33 | Outpatient (CLI) | payer MEDICARE, BC ==
--- NOTE | 2018-06-19 14:24 | CT ---
CHEST AND ABDOMEN CT SCAN WITH IV CONTRAST: Date: 06/19/18 HISTORY: 72-year-old female with history of lung cancer, stomach cancer with metastasis to the lungs, 6 month follow-up. COMPARISON: 12/07/17. Abdomen CT scan dated 09/02/15. FINDINGS: Stable pleural and parenchymal changes in the right lower lobe, evidence for prior radiation for meta stasis. There is a very small left pleural effusion, which appears to be new when compared to the study. No evidence for mediastinal adenopathy. No new pulmonary and parenchymal masses. Mild li near changes in the left lung base, primarily pleural based. There is evidence for fatty changes in the liver. Stable bilateral renal cysts. Postoperative changes of the stomach. Fatty changes of the pancreas. No evidence for adenopathy. There is some abnormal wa ll thickening of the mid distal left colon and sigmoid colon junction, which is new from the prior st udy. At the junction of the sigmoid colon, there is some prominent nodular soft tissue fullness resul ting in mass-like appearance. Conceivably, this could represent a very long segment neoplasm and/or f ocal colitis and/or focal diverticulitis, although there is no significant pericolonic fat stranding that would go along with acute diverticulitis. Further evaluation with endoscopy is suggested. There is a somewhat small scarred right upper renal pole. IMPRESSION: 1. Stable scarring in the right chest. 2. Probable small new left pleural effusion. 3. New abnormal wall thickening of the distal left colon and sigmoid colon junction region, which is a fairly long segment, but has a somewhat nodular mass-like effect at the junction of the normal sig moid colon, certainly concerning for the possibility of neoplastic mass and/or focal nonspecific coli tis. Further evaluation with colonoscopy in this regard is suggested. 4. Other findings as above, stable. Findings were discussed with Dr. Wyatt at 1130 hours. CODE CR. POS: [facility]
[2018-06-19] MEDS ORDERED: Iopamidol 370 76% 100 ML VIAL ONE (15:04)
== END 2018-06-19 09:34 | disposition home or self-care (01) ==
LOC: BICCT 09:33
PROVIDERS: ATTEND Internal Medicine Hematology & Oncology
DX: C34.90 Malignant neoplasm of unspecified part of unspecified bronchus or lung (principal); J98.4 Other disorders of lung; K63.89 Other specified diseases of intestine; N28.1 Cyst of kidney, acquired; K76.9 Liver disease, unspecified; K86.9 Disease of pancreas, unspecified
CPT/HCPCS: 71260; 74160; 82565

== ENCOUNTER 2018-10-17 09:05 | Outpatient (CLI) | payer MEDICARE, BC ==
--- NOTE | 2018-10-17 10:34 | RAD ---
EXAM: CHEST TWO VIEWS: History: Secondary malignant neoplasm of left lung. Comparison: 04-25-18 FINDINGS: Persistent right infrahilar opacity changes. Heart size is normal. No significant pleural effusion. R ight vascular Mediport access. Left lung appears clear. IMPRESSION: Persistent parenchymal changes in the right infrahilar region. No significant new process. POS: [facility]
== END 2018-10-17 09:06 | disposition home or self-care (01) ==
LOC: BICRAD 09:05
PROVIDERS: ATTEND Internal Medicine Hematology & Oncology
DX: C78.02 Secondary malignant neoplasm of left lung (principal); C80.1 Malignant (primary) neoplasm, unspecified; R91.8 Other nonspecific abnormal finding of lung field
CPT/HCPCS: 71046

== ENCOUNTER 2019-01-03 10:35 | Outpatient (CLI) | payer MEDICARE, BC ==
[2019-01-03] MEDS ORDERED: Iopamidol 370 76% 100 ML VIAL ONE (11:45)
--- NOTE | 2019-01-03 12:52 | CT ---
CT CHEST WITH IV CONTRAST: HISTORY: Follow up lung metastasis. Pyloric antral cancer. COMPARISON: 06/19/2018 FINDINGS: Stable scarring in the right lung and lingula. No evidence for pulmonary metastasis. No mediastinal mass or adenopathy. No acute pleural effusion. Status post cholecystectomy. Postop changes in the region of the stomach with evidence for gastrojej unostomy type anastomosis. Fatty changes in the pancreas. Somewhat scarred appearing right kidney w ith bilateral renal cysts, stable. Status post cholecystectomy. The spleen and adrenal glands are u nremarkable. The previously noted abnormal colonic wall thickening of the left colon has resolved/ma rkedly improved since the prior study. The pelvis is not included on this study. IMPRESSION: 1. Stable scarring in the right lung and left upper lobe. 2. No evidence for pulmonary metastasis or mediastinal mass or adenopathy. 3. Marked improvement in the previously noted abnormal colonic wall thickening of the left colon whe n compared to the prior study. 4. Other stable findings in the abdomen. 5. No evidence for new metastasis. POS: [facility]
== END 2019-01-03 10:36 | disposition home or self-care (01) ==
LOC: BICCT 10:35
PROVIDERS: ATTEND Internal Medicine Hematology & Oncology
DX: C16.3 Malignant neoplasm of pyloric antrum (principal); C78.02 Secondary malignant neoplasm of left lung; J98.4 Other disorders of lung; K63.89 Other specified diseases of intestine; N28.1 Cyst of kidney, acquired
CPT/HCPCS: 71260; 74160; 82565; Q9967

== ENCOUNTER 2019-07-10 10:34 | Outpatient (CLI) | payer MEDICARE, BC ==
--- NOTE | 2019-07-10 11:39 | CT ---
CT chest with IV contrast CT abdomen with IV contrast HISTORY: Gastric cancer. Lung metastases. COMPARISON: 01/03/2019. FINDINGS: Parenchymal scarring at the right posterior and anterolateral lung base is again demonstrat ed. Proximal scarring at the medial aspect of the left lung base is unchanged. No focal parenchymal lung mass. No mediastinal adenopathy. Gallbladder surgically absent. Postoperative changes of the stomach evident. Atrophy of the superior pole right kidney is similar in appearance to the previous exam. Large lobular cyst at the medial cortex of the left kidney is stable. No enlarged lymph nodes or free fluid in the abdomen are apparen t. The pelvis was not imaged. Scattered diverticula of the partially visualized colon without adjacent inflammation. Postoperative and degenerative changes of the thoracolumbar spine. Gas within a small posterior disc herniation at the L3-4 level. IMPRESSION: Parenchymal scarring and other chronic-type findings of the chest are stable. No evidence recurrent metastatic disease. Atherosclerosis. Diverticulosis. No evidence of diverticulitis.
[2019-07-10] MEDS ORDERED: Iopamidol 370 76% 100 ML VIAL ONE (12:54)
== END 2019-07-10 10:35 | disposition home or self-care (01) ==
LOC: CT 10:34
PROVIDERS: ATTEND Internal Medicine Hematology & Oncology
DX: C78.02 Secondary malignant neoplasm of left lung (principal); C16.3 Malignant neoplasm of pyloric antrum; I70.90 Unspecified atherosclerosis; K57.30 Diverticulosis of large intestine without perforation or abscess without bleeding
CPT/HCPCS: 71260; 74160; 82565; Q9967

== ENCOUNTER 2019-12-31 10:34 | Outpatient (CLI) | payer MEDICARE, BC ==
[~2019-12-31 10:34] MED LIST: Iopamidol-370 76% 500 ML 1 ML ONE
--- NOTE | 2019-12-31 11:40 | CT ---
CT chest with IV contrast CT abdomen with IV and oral contrast HISTORY: Malignant neoplasm pyloric antrum. Lung metastases. Restaging. COMPARISON: 07/10/2019. FINDINGS: Linear focus of parenchymal scarring at the anterior aspect the left upper lobe is stable. Larger area of parenchymal scarring at the right infrahilar level is also unchanged in appearance. No new lung lesions. No pleural fluid, pneumothorax, or mediastinal adenopathy. Small pocket of gas within the superficial subcutaneous tissues at the right upper medial chest is pr esent were implanted port was present on the prior exam. Postoperative changes of the stomach are evident. A lobular cyst of the left kidney and cortical scarring at the superior pole of the right kidney are stable. No liver mass is evident. There is calcification throughout the arterial structures. Prominent degenerative changes of the lumb ar spine. The pelvis was not imaged. IMPRESSION : Parenchymal scarring of the lungs and other chronic-type findings are stable. No evidence of recurren t metastases. Recent removal of the right chest wall Mediport. Atherosclerosis.
== END 2019-12-31 10:35 | disposition home or self-care (01) ==
LOC: BICCT 10:34
PROVIDERS: ATTEND Internal Medicine Hematology & Oncology
DX: C16.3 Malignant neoplasm of pyloric antrum (principal); C78.02 Secondary malignant neoplasm of left lung; J98.4 Other disorders of lung
CPT/HCPCS: 71260; 74160; 82565; Q9967

== ENCOUNTER 2020-06-17 13:47 | Outpatient (CLI) | payer MEDICARE, BC ==
--- NOTE | 2020-06-17 15:40 | CT ---
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 COMPARISON: Exams of 12/31/19 and 07/10/19. Some minimal parenchymal scarring is seen within the left upper lobes, stable. More prominent area of scar seen in the right lung base. This parallels and abuts the major fissure. No significant mediastinal or hilar lymphadenopathy. Visualized liver parenchyma shows no focal findings. Postoperative changes of the stomach are seen. C ortical scaring involving the upper pole of the right kidney and hypodensities involving both kidneys are most likely cysts. Post cholecystectomy change also seen. IMPRESSION: 1. Areas of scarring in the left upper lobe and more prominent area of scarring paralleling the undersurface of the major fissure on the right. 2. Cortical scarring involving the upper pole of the right kidney. Postoperative changes of the stomach and surgical clips along the left lobe of the liver suggesting previous partial resection of the left lobe. These findings are stable. POS: [facility]
== END 2020-06-17 13:48 | disposition home or self-care (01) ==
LOC: BICCT 13:47
PROVIDERS: ATTEND Internal Medicine Hematology & Oncology
DX: C16.3 Malignant neoplasm of pyloric antrum (principal); C78.02 Secondary malignant neoplasm of left lung; N28.89 Other specified disorders of kidney and ureter; Z98.890 Other specified postprocedural states
CPT/HCPCS: 71260; 82565

== ENCOUNTER 2020-07-07 14:13 | Outpatient (CLI) | payer MEDICARE, BC ==
--- NOTE | 2020-07-07 14:47 | RAD ---
LUMBAR SPINE 4 VIEWS: Date: 07/07/2020 INDICATION: Post laminectomy syndrome. Back pain. FINDINGS: AP view shows degenerative spurring with scoliotic curvature with convexity to the left. [place] at L3. Lateral view shows vertebral bodies of lumbar spine to maintain height and alignment in the lateral p rojection. Degenerative end plate changes are noted at L2-3 and L3-4. Facet hypertrophy. Alignment ap pears preserved with flexion and extension. IMPRESSION: Moderate degenerative changes of lumbar spine. POS: [facility]
== END 2020-07-07 14:14 | disposition home or self-care (01) ==
LOC: BICRAD 14:13
PROVIDERS: ATTEND Nurse Practitioner Family
DX: M96.1 Postlaminectomy syndrome, not elsewhere classified (principal); M47.816 Spondylosis without myelopathy or radiculopathy, lumbar region
CPT/HCPCS: 72110

== ENCOUNTER 2020-12-16 09:45 | Outpatient (CLI) | payer MEDICARE, BC | END 2020-12-16 09:46 | disposition home or self-care (01) | LOC: BICCT 09:45 | PROVIDERS: ATTEND Internal Medicine Hematology & Oncology | DX: C16.3 Malignant neoplasm of pyloric antrum (principal); C78.02 Secondary malignant neoplasm of left lung; D17.9 Benign lipomatous neoplasm, unspecified | CPT/HCPCS: 71260; 82565; Q9967 ==

== ENCOUNTER 2021-04-30 13:23 | Outpatient (CLI) | payer MEDICARE, BC | END 2021-04-30 13:24 | disposition home or self-care (01) | LOC: BICMAMMO 13:23 | PROVIDERS: ATTEND Family Medicine | DX: Z12.31 Encounter for screening mammogram for malignant neoplasm of breast (principal); Z85.00 Personal history of malignant neoplasm of unspecified digestive organ | CPT/HCPCS: 77063; 77067 ==

== ENCOUNTER 2021-06-22 13:18 | Outpatient (CLI) | payer MEDICARE, BC | END 2021-06-22 13:19 | disposition home or self-care (01) | LOC: BICCT 13:18 | PROVIDERS: ATTEND Internal Medicine Hematology & Oncology | DX: C16.3 Malignant neoplasm of pyloric antrum (principal); C78.02 Secondary malignant neoplasm of left lung; N28.89 Other specified disorders of kidney and ureter; Z90.49 Acquired absence of other specified parts of digestive tract; K86.89 Other specified diseases of pancreas | CPT/HCPCS: 71260; Q9967 ==

== ENCOUNTER 2021-12-09 11:26 | Outpatient (CLI) | payer MEDICARE, BC ==
[~2021-12-09 11:26] MED LIST changes: +Iopamidol 370 76% 100 ML VIAL ONE; -Iopamidol-370 76% 500 ML 1 ML ONE
== END 2021-12-09 11:27 | disposition home or self-care (01) ==
LOC: CT 11:26
PROVIDERS: ATTEND Internal Medicine Hematology & Oncology
DX: C78.02 Secondary malignant neoplasm of left lung (principal)
CPT/HCPCS: 71260; 82565

== ENCOUNTER 2022-02-04 14:39 | Outpatient (CLI) | payer MEDICARE, BC | END 2022-02-04 14:40 | disposition home or self-care (01) | LOC: BICRAD 14:39 | PROVIDERS: ATTEND Nurse Practitioner Family | DX: M54.6 Pain in thoracic spine (principal); M47.814 Spondylosis without myelopathy or radiculopathy, thoracic region | CPT/HCPCS: 72072 ==

== ENCOUNTER 2022-05-25 12:20 | Outpatient (CLI) | payer MEDICARE, BC | END 2022-05-25 12:21 | disposition home or self-care (01) | LOC: TBSIIMAG 12:20 | PROVIDERS: ATTEND Nurse Practitioner Family | DX: M96.1 Postlaminectomy syndrome, not elsewhere classified (principal); M47.816 Spondylosis without myelopathy or radiculopathy, lumbar region; M47.817 Spondylosis without myelopathy or radiculopathy, lumbosacral region; M47.815 Spondylosis without myelopathy or radiculopathy, thoracolumbar region | CPT/HCPCS: 72148 ==

== ENCOUNTER 2022-12-27 08:23 | Outpatient (CLI) | payer MEDICARE, BC ==
[2022-12-27] MEDS ORDERED: Iopamidol 370 76% 100 ML VIAL ONE (09:00)
== END 2022-12-27 08:24 | disposition home or self-care (01) ==
LOC: CT 08:23
PROVIDERS: ATTEND Internal Medicine Hematology & Oncology
DX: C78.02 Secondary malignant neoplasm of left lung (principal)
CPT/HCPCS: 71260; 82565; Q9967

== ENCOUNTER 2024-05-17 08:02 | Outpatient (CLI) | payer OTHER ==
[2024-05-17] MEDS ORDERED: Iopamidol 370 76% 100 ML VIAL ONE (12:03)
== END 2024-05-17 08:03 | disposition home or self-care (01) ==
LOC: CT 08:02
PROVIDERS: ATTEND Internal Medicine Hematology & Oncology
DX: C16.3 Malignant neoplasm of pyloric antrum (principal); C78.02 Secondary malignant neoplasm of left lung; J98.4 Other disorders of lung; I70.0 Atherosclerosis of aorta; D73.89 Other diseases of spleen; N26.1 Atrophy of kidney (terminal); N28.9 Disorder of kidney and ureter, unspecified; K57.30 Diverticulosis of large intestine without perforation or abscess without bleeding; K59.00 Constipation, unspecified; M47.815 Spondylosis without myelopathy or radiculopathy, thoracolumbar region; M43.8X5 Other specified deforming dorsopathies, thoracolumbar region; R22.31 Localized swelling, mass and lump, right upper limb; Z90.49 Acquired absence of other specified parts of digestive tract; Z98.1 Arthrodesis status
CPT/HCPCS: 36415; 71260; 74160; 82565